=== PATIENT | male | born 1990 | race Caucasian/White ===

== ENCOUNTER 2021-07-27 20:16 | Emergency (ER) | payer OTHER ==
[~2021-07-27] VITALS: Ht 165.1 cm; Wt 70.3 kg
[2021-07-27] MEDS ORDERED: LIDOCAINE 1%-EPI 1:100,000 20 ML VIAL ONE (21:02)
--- NOTE | 2021-07-27 21:07 | NUR ---
Patient eloped from facility. ER physician aware patient refused to be treated.
== END 2021-07-27 21:10 | disposition left against medical advice (07) ==
LOC: ER 20:34
DX: L02.413 Cutaneous abscess of right upper limb (principal); L03.113 Cellulitis of right upper limb; S50.811A Abrasion of right forearm, initial encounter; V00.141A Fall from scooter (nonmotorized), initial encounter; Y92.89 Other specified places as the place of occurrence of the external cause; Z53.29 Procedure and treatment not carried out because of patient's decision for other reasons
CPT/HCPCS: A4663; J3490

== ENCOUNTER 2021-10-16 18:52 | Inpatient (IN) | payer MEDICAID ==
[~2021-10-16] VITALS: Ht 167.6 cm; Wt 68.0 kg
[2021-10-16] MEDS ORDERED: ONDANSETRON 4 MG/2 ML VIAL IV ONE (19:30)
[2021-10-16] MEDS ORDERED: IV NORMAL SALINE 1000 ML BAG IV ONE (19:30)
[2021-10-16] MEDS ORDERED: ONDANSETRON 4 MG/2 ML VIAL ONE (19:50)
[2021-10-16 20:25] LABS: HEMATOCRIT 50.5 % (36.7-47.1); MEAN CORPUSCULAR HEMOGLOBIN 26.4 uug (23.8-33.4); MEAN CORPUSCULAR VOLUME 78.6 fL (73.0-96.2); PLATELET COUNT (AUTO) 443 K/uL (152-348)
[2021-10-16 20:33] LABS: CREATININE 2.5 mg/dL (0.6-1.3); POTASSIUM 3.4 mmol/L (3.5-5.1)
[2021-10-16 20:47] LABS: BILIRUBIN,DIRECT 0.1 mg/dL (0.0-0.2); BILIRUBIN,TOTAL 0.5 mg/dL (0.2-1.0); TOTAL PROTEIN, SERUM 7.6 g/dL (6.4-8.2)
[2021-10-16] MEDS ORDERED: MAGNESIUM SULFATE/D5W 200 ML ONE (21:04)
[2021-10-16] MEDS: MAGNESIUM SULFATE/D5W 100 ML IV SCH (21:09)
[2021-10-16] MEDS ORDERED: POTASSIUM CHLORIDE 20 MEQ TAB.PRT.SR PO ONE (21:30)
[2021-10-16] MEDS ORDERED: IV NS 1000 ML 1,000 ML IV ONE (21:30)
[2021-10-17] MEDS ORDERED: IV NS 1000 ML 1,000 ML IV PRN (00:30)
[2021-10-17] MEDS ORDERED: REMEDY ESSENTIAL ZINC PASTE 113 GM TP PRN (00:30)
[2021-10-17] MEDS ORDERED: ONDANSETRON 4 MG/2 ML VIAL IV PRN (00:30)
[2021-10-17] MEDS ORDERED: MAGNESIUM HYDROXIDE 30 ML LIQUID UDC PO PRN (00:30)
[2021-10-17] MEDS ORDERED: ACETAMINOPHEN 325 MG TABLET PO PRN (00:30)
[2021-10-17] MEDS ORDERED: LORAZEPAM 2 MG/1 ML VIAL ONE (01:09)
[2021-10-17] MEDS ORDERED: LORAZEPAM 2 MG/1 ML VIAL IV ONE (01:15)
[2021-10-17] MEDS ORDERED: PIPERACILLIN SODIUM/TAZOBACTAM 3.375 G in IV DEXTROSE 5% 50 ML IV ONE (02:00)
[2021-10-17 02:20] VITALS: BP 95/54
[2021-10-17] MEDS ORDERED: PIPERACILLIN/TAZOBACTAM/D5W 50 ML IV ONE (02:32)
[2021-10-17 04:14] VITALS: BP 91/46
[2021-10-17] MEDS: METOCLOPRAMIDE HCL 10 MG/2 ML VIAL IV SCH ×3 (05:08→18:00)
[2021-10-17] MEDS ORDERED: PIPERACILLIN SODIUM/TAZOBACTAM 3.375 G in IV DEXTROSE 5% 50 ML IV SCH (06:00)
[2021-10-17] MEDS: PIPERACILLIN SODIUM/TAZOBACTAM 3.375 G in IV DEXTROSE 5% 100 ML IV SCH ×2 (09:41→18:31)
[2021-10-17] MEDS ORDERED: IV NS 1000 ML 1,000 ML IV ONE (14:15)
[2021-10-17 16:00] VITALS: BP 95/50
[2021-10-17 16:57] VITALS: BP 95/58
[2021-10-17 20:18] VITALS: BP 111/52
[2021-10-17] MEDS ORDERED: CIPR-262 PO (21:05)
[2021-10-17] MEDS ORDERED: METR500T PO (21:05)
[2021-10-17 22:25] LABS: HEMATOCRIT 32.9 % (36.7-47.1); MEAN CORPUSCULAR VOLUME 78.6 fL (73.0-96.2); PLATELET COUNT (AUTO) 320 K/uL (152-348)
[2021-10-17 22:29] LABS: POTASSIUM 3.1 mmol/L (3.5-5.1)
== END 2021-10-17 22:47 | disposition home or self-care (01) | DRG 248 ==
LOC: ER 18:52 → TELE3 23:59 → MEDSURG3 23:59 → UNDOADMIN 23:59
PROVIDERS: ADMIT Nurse Practitioner Acute Care; ATTEND Nurse Practitioner Acute Care
DX: A04.9 Bacterial intestinal infection, unspecified (principal); N17.0 Acute kidney failure with tubular necrosis; E87.1 Hypo-osmolality and hyponatremia; E88.09 Other disorders of plasma-protein metabolism, not elsewhere classified; E86.0 Dehydration; E86.1 Hypovolemia; E87.6 Hypokalemia; Z20.822 Contact with and (suspected) exposure to COVID-19; D72.829 Elevated white blood cell count, unspecified; D75.839 Thrombocytosis, unspecified; R53.1 Weakness; F19.10 Other psychoactive substance abuse, uncomplicated; Z59.00 Homelessness unspecified; N05.9 Unspecified nephritic syndrome with unspecified morphologic changes
CPT/HCPCS: 36415; 71045; 76700; 82533; 83605; 83690; 85025; 87040; 87806; 93005; A4663; G0378; J2060; J2405; J2543; J2765; J3475; J7040